=== PATIENT | male | born 2000 | race African-American/Black ===

== ENCOUNTER 2023-03-30 21:54 | Emergency (ER) | payer OTHER ==
[~2023-03-30] VITALS: Ht 193 cm; Wt 90.0 kg
[2023-03-30 22:35] VITALS: BP 118/67; PULSE 59; RESP 16; TEMP 98
[2023-03-30] MEDS ORDERED: CefTRIAXone SODIUM 1 GM/VIAL IM ONE (22:45)
[2023-03-30] MEDS ORDERED: LIDOCAINE/PF 1% 2 ML VIAL IM ONE ×2 (22:45)
[2023-03-30 23:09] LABS: APPEARANCE,URINE CLEAR (CLEAR); BILIRUBIN,URINE NEGATIVE (NEGATIVE); COLOR,URINE YELLOW (YELLOW); GLUCOSE, URINE (UA) NEGATIVE (NEGATIVE); KETONES,URINE TRACE mg/dL (NEGATIVE); LEUKOCYTE ESTERASE ,URINE SMALL (NEGATIVE); NITRATE,URINE NEGATIVE (NEGATIVE); OCCULT BLOOD,URINE NEGATIVE (NEGATIVE); PROTEIN,URINE 30-70 mg/dL (NEGATIVE); SPECIFIC GRAVITIY, URINE 1.041 (1.003-1.030)
[2023-03-30] MEDS ORDERED: DOXY-354 PO (23:13)
[2023-03-30 23:25] LABS: BACTERIA,URINE None Seen /HPF (None Seen); MUCUS,URINE Few LPF (None Seen); RBC,URINE None Seen /HPF (0-2); SQUAMOUS EPITHELIAL CELL,UR None Seen /LPF (None Seen)
== END 2023-03-31 00:15 | disposition home or self-care (01) ==
LOC: EMS 21:55
DX: N34.2 Other urethritis (principal)
CPT/HCPCS: 99283; 81001; 96372; J0696; J3490